=== PATIENT | male | born 1940 ===

== ENCOUNTER 2025-01-08 18:53 | Outpatient (REF) | payer MEDICARE, SELFPAY ==
[2025-01-08 20:57] LABS: HGB 12.3 g/dL (13.5-17.5); MCH 31.8 pg (27.0-33.0); MCHC 34.2 % (32.0-36.0); MCV 93 fL (80-95); MPV 10.4 fL (8.0-11.0); Platelet Count 240 10^3/uL (130-400); RBC 3.87 10^6/uL (4.36-5.78); RDW-SD 44.3 fL; WBC 8.41 10^3/uL (4.4-10.8)
[2025-01-08 21:12] LABS: ALT 20 U/L (16-63); AST 21 U/L (15-37); Albumin 3.5 g/dL (3.4-5.0); Alkaline Phosphatase 90 U/L (46-116); Anion Gap 2.6 mmol/L (3-11); BUN 37 mg/dL (7-18); Bilirubin, Total 0.71 mg/dL (0.2-1.0); CO2 31.4 mmol/L (21.0-32.0); CREATININE 1.7 mg/dL (0.70-1.30); Calcium 9.4 mg/dL (8.5-10.1); Chloride 105 mmol/L (98-107); Estimated GFR 39.51 (mL/min/1.73m2); Glucose 108 mg/dL (74-106); Potassium 4.8 mmol/L (3.5-5.1); Sodium 139 mmol/L (136-145); Total Protein 6.7 g/dL (6.4-8.2)
== END 2025-01-08 18:54 | disposition home or self-care (01) ==
LOC: NCHCN 18:53
PROVIDERS: Visit Provider Family Medicine
DX: R53.83 Other fatigue (principal); R82.998 Other abnormal findings in urine
CPT/HCPCS: 80053; 85027; 87086

== ENCOUNTER 2025-06-11 12:49 | Outpatient (REF) | payer MEDICARE, SELFPAY ==
[2025-06-11 14:57] LABS: HCT 40.6 % (40.0-50.0); HGB 13.4 g/dL (13.5-17.5); MCH 30.0 pg (27.0-33.0); MCHC 33.0 % (32.0-36.0); MCV 91 fL (80-95); RBC 4.46 10^6/uL (4.36-5.78); RDW 12.9 % (11.8-14.1); RDW-SD 42.5 fL; WBC 5.76 10^3/uL (4.4-10.8)
[2025-06-11 15:09] LABS: Iron 59 ug/dL (65-175); Total Iron Binding Capacity 324 ug/dL (250-450); Transferrin Sat 18 % (20-55)
[2025-06-11 15:34] LABS: Ferritin 94 ng/mL (26-388); Folate 7.7 ng/mL (8.6-20.0); Vitamin B12 217 pg/mL (193-986)
== END 2025-06-11 12:50 | disposition home or self-care (01) ==
LOC: NCHCN 12:49
PROVIDERS: Visit Provider Family Medicine
DX: D64.9 Anemia, unspecified (principal)
CPT/HCPCS: 85027; 82607; 82728; 82746; 83540; 83550